=== PATIENT | male | born 1955 ===

== ENCOUNTER 2019-07-12 16:32 | Emergency (ER) | payer MEDICARE ==
[~2019-07-12] VITALS: Ht 167.6 cm; Wt 71.8 kg
[2019-07-12] MEDS ORDERED: CARV3 PO (17:46)
[2019-07-12] MEDS ORDERED: TAMS-13 PO (17:46)
[2019-07-12] MEDS ORDERED: AMLO10TA7 PO (17:46)
[2019-07-12] MEDS ORDERED: IPRATROPIUM BROMIDE 0.5 MG/2.5 ML NEB SOLUTION NEB ONE (20:30)
[2019-07-12] MEDS ORDERED: ACETAMINOPHEN 500 MG TABLET PO ONE (20:30)
[2019-07-12] MEDS ORDERED: ONDANSETRON HCL 4 MG TABLET PO ONE (20:30)
[2019-07-12] MEDS ORDERED: ALBUTEROL SULFATE 2.5 MG/0.5 ML NEB SOLUTION NEB ONE (20:30)
[2019-07-12] MEDS ORDERED: 0.9% SODIUM CHLORIDE 5 ML NEB SOLUTION NEB ONE (20:48)
[2019-07-12 22:14] VITALS: BP 144/78
== END 2019-07-12 22:58 | disposition home or self-care (01) ==
LOC: EMS 16:37
DX: J11.1 Influenza due to unidentified influenza virus with other respiratory manifestations (principal); I10 Essential (primary) hypertension; F12.90 Cannabis use, unspecified, uncomplicated; F17.290 Nicotine dependence, other tobacco product, uncomplicated; Z88.8 Allergy status to other drugs, medicaments and biological substances; Z79.899 Other long term (current) drug therapy
CPT/HCPCS: 71046; 94640; 99283; Q0162